=== PATIENT | female | born 1950 | race Caucasian/White ===

== ENCOUNTER 2017-04-07 06:04 | Emergency (ER) | payer MEDICARE, OTHER | END 2017-04-07 09:36 | disposition home or self-care (01) | LOC: ER 06:04 | DX: J40 Bronchitis, not specified as acute or chronic (principal); B96.89 Other specified bacterial agents as the cause of diseases classified elsewhere; I48.91 Unspecified atrial fibrillation; I10 Essential (primary) hypertension; Z90.49 Acquired absence of other specified parts of digestive tract; Z79.82 Long term (current) use of aspirin; Z79.899 Other long term (current) drug therapy | CPT/HCPCS: 36415; 96365; 96366; 96375 ==